=== PATIENT | female | born 1975 | race African-American/Black ===

== ENCOUNTER 2021-01-03 20:27 | Emergency (ER) | payer MEDICARE, MEDICAID ==
[2021-01-03] MEDS ORDERED: Ketorolac Tromethamine 30 MG/ML VIAL ONE (21:01)
[2021-01-03] MEDS ORDERED: HYDROcodone/Acetaminophen 5/325 mg Tablet ONE (21:37)
== END 2021-01-03 22:42 | disposition home or self-care (01) ==
LOC: CSHERS 20:27
DX: M25.531 Pain in right wrist (principal); M06.9 Rheumatoid arthritis, unspecified; E03.9 Hypothyroidism, unspecified; Z87.19 Personal history of other diseases of the digestive system; Z79.899 Other long term (current) drug therapy
CPT/HCPCS: 96372; J1885